=== PATIENT | female | born 1955 | race Native Hawaiian/Other Pacific Islander ===

== ENCOUNTER 2018-07-07 12:43 | Emergency (ER) | payer SELFPAY ==
[2018-07-07 14:06] LABS: Basophils % (Auto) 0.6 % (0.0-1.8); Eosinophils % (Auto) 0.5 % (0.0-4.3); Hematocrit 48.7 % (30.3-42.9); Hemoglobin 16.6 gm/dl (10.1-14.3); Lymphocytes # (Auto) 1.5 K/mm3 (1.2-5.4); Lymphocytes % (Auto) 28.4 % (13.4-35.0); Mean Corpuscular HGB Conc 34 % (30-34); Mean Corpuscular Hemoglobin 31 pg (28-32); Mean Corpuscular Volume 91 fl (79-97); Monocytes # (Auto) 0.3 K/mm3 (0.0-0.8); Monocytes % (Auto) 5.2 % (0.0-7.3); Platelet Count 264 K/mm3 (140-440); Red Blood Count 5.34 M/mm3 (3.65-5.03); Red Cell Distribution Width 12.7 % (13.2-15.2)
[2018-07-07 14:32] LABS: Calcium 10.6 mg/dL (8.4-10.2)
[2018-07-07] MEDS ORDERED: ZOFRAN IV ONE (18:09)
[2018-07-07] MEDS ORDERED: NACL 0.9% 1000 ML 1,000 ML IV ONE (18:09)
[2018-07-07] MEDS ORDERED: MORPHINE IV ONE (18:19)
--- NOTE | 2018-07-07 18:32 | Emergency Department Report ---
<SUZANNE CHÁVEZ - Last Filed: 07/07/18 18:29> ED General Adult HPI - General Chief complaint: Nausea/Vomiting/Diarrhea Stated complaint: NAUSEA/HEADACHE/HIGH BP Time Seen by Provider: 07/07/18 17:26 Source: patient, family Mode of arrival: Ambulatory Limitations: Language Barrier - History of Present Illness Initial comments: Patient presents to the emergency department with her daughter for a complaint of abdominal pain along with nausea and vomiting. The patient is [place]- speaking only so her daughter translates. Patient states the pain has been present for 2-3 weeks along with the nausea and vomiting. She denies anything making the pain worse and better. Denies chest pain, shortness of breath, headache. Was treated at clinic last week and given a prescription for Zofran and Pepcid without relief -: Gradual Location: abdomen Radiation: non-radiation Severity scale (0 -10): 3 Quality: dull Consistency: constant Improves with: none Worsens with: none Associated Symptoms: denies other symptoms - Related Data Previous Rx's Medication Instructions Recorded Last Taken Type Naproxen [Naprosyn] 500 mg PO BID PRN #20 tablet 07/07/18 Unknown Rx Allergies Allergy/AdvReac Type Severity Reaction Status Date / Time No Known Allergies Allergy Verified 07/07/18 21:26 ED Review of Systems ROS: Stated complaint: NAUSEA/HEADACHE/HIGH BP Other details as noted in HPI Comment: All other systems reviewed and negative Constitutional: denies: chills, fever Eyes: denies: eye pain, eye discharge, vision change ENT: denies: ear pain, throat pain Respiratory: denies: cough, shortness of breath, wheezing Cardiovascular: denies: chest pain, palpitations Endocrine: no symptoms reported Gastrointestinal: abdominal pain, nausea, vomiting. denies: diarrhea Genitourinary: denies: urgency, dysuria, discharge Musculoskeletal: denies: back pain, joint swelling, arthralgia Skin: denies: rash, lesions Neurological: denies: headache, weakness, paresthesias Psychiatric: denies: anxiety, depression Hematological/Lymphatic: denies: easy bleeding, easy bruising ED Past Medical Hx - Past Medical History Previous Medical History?: Yes Hx Hypertension: Yes - Surgical History Past Surgical History?: No - Social History Smoking Status: Never Smoker Substance Use Type: None - Medications Home Medications: Home Medications Medication Instructions Recorded Confirmed Last Taken Type Naproxen [Naprosyn] 500 mg PO BID PRN #20 tablet 07/07/18 Unknown Rx ED Physical Exam - General Limitations: Language Barrier, Other (daughter translated for patient) General appearance: alert, in no apparent distress - Head Head exam: Present: atraumatic, normocephalic - Eye Eye exam: Present: normal appearance - ENT ENT exam: Present: mucous membranes moist - Neck Neck exam: Present: normal inspection - Respiratory Respiratory exam: Present: normal lung sounds bilaterally. Absent: respiratory distress - Cardiovascular Cardiovascular Exam: Present: regular rate, normal rhythm. Absent: systolic murmur, diastolic murmur, rubs, gallop - GI/Abdominal GI/Abdominal exam: Present: soft, tenderness (diffusely tender to palpation), normal bowel sounds. Absent: distended - Extremities Exam Extremities exam: Present: normal inspection - Back Exam Back exam: Present: normal inspection - Neurological Exam Neurological exam: Present: alert, oriented X3 - Psychiatric Psychiatric exam: Present: normal affect, normal mood - Skin Skin exam: Present: warm, dry, intact, normal color. Absent: rash ED Course Vital Signs 07/07/18 13:17 Temperature 98.5 F Pulse Rate 83 Respiratory 16 Rate Blood Pressure 122/80 O2 Sat by Pulse 98 Oximetry ED Medical Decision Making - Lab Data Result diagrams: 07/07/18 13:46 07/07/18 13:46 Critical care attestation.: If time is entered above; I have spent that time in minutes in the direct care of this critically ill patient, excluding procedure time. ED Disposition Clinical Impression: Renal cyst, Hepatic cyst, Mild dehydration UTI (urinary tract infection) Qualifiers: Urinary tract infection type: acute cystitis Hematuria presence: without hematuria Qualified Code(s): N30.00 - Acute cystitis without hematuria Abdominal pain Qualifiers: Abdominal location: generalized Qualified Code(s): R10.84 - Generalized abdominal pain Disposition: DC-01 TO HOME OR SELFCARE Condition: Good Instructions: Dehydration (ED), Urinary Tract Infection in Women (ED) Prescriptions: Naproxen [Naprosyn] 500 mg PO BID PRN #20 tablet PRN Reason: pain Referrals: PRIMARY CARE,MD [Primary Care Provider] - 3-5 Days Forms: Work/School Release Form(ED) Print Language: YEMENI <CHAITANYA OSMAN - Last Filed: 07/07/18 22:05> ED Medical Decision Making - Lab Data Result diagrams: 07/07/18 13:46 07/07/18 13:46 Laboratory Tests 07/07/18 07/07/18 07/07/18 13:46 13:46 18:20 WBC 5.2 RBC 5.34 H Hgb 16.6 H Hct 48.7 H MCV 91 MCH 31 MCHC 34 RDW 12.7 L Plt Count 264 Lymph % (Auto) 28.4 [place] % (Auto) 5.2 Eos % (Auto) 0.5 Baso % (Auto) 0.6 Lymph # 1.5 [place] # 0.3 Eos # 0.0 Baso # 0.0 Seg Neutrophils % 65.3 Seg Neutrophils # 3.4 PT 12.9 INR 0.93 APTT 24.5 Sodium 135 L Potassium 4.7 Chloride 98.0 Carbon Dioxide 21 L Anion Gap 21 BUN 16 Creatinine 1.0 Estimated GFR 56 BUN/Creatinine Ratio 16 Glucose 105 H Calcium 10.6 H Total Bilirubin 0.90 AST 26 ALT 18 Alkaline Phosphatase 86 Total Protein 8.8 H Albumin 5.0 Albumin/Globulin Ratio 1.3 Lipase Urine Color Urine Turbidity Urine pH Ur Specific [place] Urine Protein Urine Glucose (UA) Urine Ketones Urine Blood Urine Nitrite Urine Bilirubin Urine Urobilinogen Ur Leukocyte Esterase Urine WBC (Auto) Urine RBC (Auto) U Epithel Cells (Auto) Urine Bacteria (Auto) Ur Renal Epithelial Cell Urine Mucus 07/07/18 07/07/18 18:20 18:39 WBC RBC Hgb Hct MCV MCH MCHC RDW Plt Count Lymph % (Auto) [place] % (Auto) Eos % (Auto) Baso % (Auto) Lymph # [place] # Eos # Baso # Seg Neutrophils % Seg Neutrophils # PT INR APTT Sodium Potassium Chloride Carbon Dioxide Anion Gap BUN Creatinine Estimated GFR BUN/Creatinine Ratio Glucose Calcium Total Bilirubin AST ALT Alkaline Phosphatase Total Protein Albumin Albumin/Globulin Ratio Lipase 59 Urine Color Yellow Urine Turbidity Slightly-cloudy Urine pH 5.0 Ur Specific [place] 1.023 Urine Protein 30 mg/dl Urine Glucose (UA) Neg Urine Ketones 20 Urine Blood Neg Urine Nitrite Neg Urine Bilirubin Neg Urine Urobilinogen < 2.0 Ur Leukocyte Esterase Lg Urine WBC (Auto) 57.0 H Urine RBC (Auto) 2.0 U Epithel Cells (Auto) 5.0 Urine Bacteria (Auto) 1+ Ur Renal Epithelial Cell 4 Urine Mucus 3+ - Radiology Data Radiology results: report reviewed, image reviewed No acute intra-abdominal process is noted , right kidney cyst multiple liver cysts, 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, bilateral spondylosis of L4 and 5 - Medical Decision Making Pain is improved with medications given in ED plan continue Zofran finished Bactrim continue omeprazole follow with PCP concerning UTI renal cyst liver cyst return immediately should symptoms worsen patient uses daughter as executive admin refuses executive admin service VERBALIZES understanding and agreement with discharge plan we'll put discharge plan the [place] and [place], pt is currently toleration even meal without n/v abd pain decreased 01/01 no n/v pt is a/o x 3 ambulatory wtih nad ED Disposition Is pt being admited?: No Does the pt Need Aspirin: No Time of Disposition: 22:05
[2018-07-07 18:46] LABS: INR 0.93 (0.87-1.13); Partial Thromboplastin Time 24.5 Sec. (24.2-36.6)
[2018-07-07 18:55] LABS: Bacteria,Urine 1+ /HPF (Negative); Bilirubin,Urine NEG (Negative); Blood,Urine NEG (Negative); Color,Urine Yellow (Yellow); Mucus,Urine 3+ /HPF; Renal Epithelial Cells,Urine 4 /LPF; Urobilinogen,Urine < 2.0 mg/dL (<2.0)
--- NOTE | 2018-07-07 20:43 | Cat Scan Report ---
FINAL REPORT EXAM: CT ABDOMEN PELVIS W CON HISTORY: abdominal pain TECHNIQUE: Standard enhanced CT of the abdomen and pelvis. Coronal and sagittal reconstruction was also performed. Contrast: 100 mL Omnipaque 300 given IV. PRIORS: None. FINDINGS: Within the abdomen, the liver demonstrates a subcentimeter rounded hypodensity in the inferior right lobe, likely a small cyst but too small to characterize. Two smaller hypodense foci in the superior aspect of the liver. The spleen, pancreas, gallbladder, adrenal glands, and kidneys are unremarkable. There are bilateral duplicated collecting systems extending down to the bladder bilaterally. There is a large low-density cyst off the anterior midpole right kidney measuring 3.9 x 4.7 cm (axial image 63, series 2). No evidence for retroperitoneal or pelvic lymphadenopathy is seen. The bowel loops have normal caliber. No soft tissue mass, fluid collection, inflammatory change, or free air is seen within the abdomen or pelvis. The appendix is normal. Within the pelvis, the bladder is unremarkable. The uterus is normal. No evidence for mass or lymphadenopathy is seen in the pelvis. Images through the upper abdomen include the lung bases which are expanded and clear. Bony structures show bilateral spondylolysis of L4. There is a grade 1 anterolisthesis of L4 on L5 measuring 6.8 mm. There is severe disc space narrowing L4-L5. IMPRESSION: 1. no acute intra-abdominal process noted. 2. Cyst in the right kidney and multiple cysts in the liver 3. 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 4. Bilateral spondylolysis at L4 with anterolisthesis of L4 on L5 and severe disc space narrowing at that level.
[2018-07-07] MEDS ORDERED: ROCEPHIN/NS 1 GM/50 ML 1 GM/50 ML BAG IV ONE (21:25)
[2018-07-07 22:35] VITALS: BP 123/72
== END 2018-07-07 22:33 | disposition home or self-care (01) ==
LOC: ED 12:43
DX: N30.00 Acute cystitis without hematuria (principal); E86.0 Dehydration; N28.1 Cyst of kidney, acquired; I10 Essential (primary) hypertension
CPT/HCPCS: 36415; 74177; 80053; 81001; 83690; 85025; 85610; 85730; 96361; 96365; 96375; 99284; J0696; J2270; J2405; J7030; Q9967

== ENCOUNTER 2018-07-08 19:51 | Emergency (ER) | payer SELFPAY ==
[2018-07-08] MEDS ORDERED: NACL 0.9% 1000 ML 1,000 ML IV ONE (21:00)
[2018-07-08 21:15] LABS: Basophils % (Auto) 0.6 % (0.0-1.8); Eosinophils % (Auto) 0.6 % (0.0-4.3); Hematocrit 43.2 % (30.3-42.9); Hemoglobin 15.4 gm/dl (10.1-14.3); Lymphocytes # (Auto) 1.1 K/mm3 (1.2-5.4); Lymphocytes % (Auto) 22.1 % (13.4-35.0); Mean Corpuscular HGB Conc 36 % (30-34); Mean Corpuscular Hemoglobin 32 pg (28-32); Mean Corpuscular Volume 90 fl (79-97); Monocytes # (Auto) 0.3 K/mm3 (0.0-0.8); Monocytes % (Auto) 6.7 % (0.0-7.3); Platelet Count 245 K/mm3 (140-440); Red Cell Distribution Width 12.4 % (13.2-15.2)
[2018-07-08 21:32] LABS: Albumin 4.4 g/dL (3.9-5); Calcium 10.3 mg/dL (8.4-10.2)
[2018-07-09] MEDS ORDERED: NACL 0.9% 500 ML 500 ML IV ONE (04:23)
[2018-07-09] MEDS ORDERED: TYLENOL PO ONE (04:23)
[2018-07-09] MEDS ORDERED: REGLAN IV ONE (04:23)
--- NOTE | 2018-07-09 04:26 | Emergency Department Report ---
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 She typically goes to [facility] for her medical care. Patient was seen at [facility] as an outpatient last week, and was presumptively diagnosed with a urinary tract infection and prescribed 10 days of Bactrim. She was also prescribed as needed Zofran and omeprazole. She presented to the ER recently for abdominal cramping and nausea and vomiting, had laboratory studies that were unremarkable and a CT scan of the abdomen and pelvis that was basically negative for significant surgical disease. The patient was documented to have improved with her symptoms. She now presents to the ER with family for nausea and generalized weakness. She describes decreased appetite. She indicates that she has no urinary symptoms. In the emergency room, the patient was given fluids, acetaminophen, and Reglan which improved her symptoms. She complained of mild frontal headache, which was not sudden or thunderclap in nature and not maximum intensity. She reports that she felt this way because she wasn't eating. -: Gradual Location: head Consistency: now resolved Improves with: medication Associated Symptoms: headaches, loss of appetite, malaise, nausea/vomiting, weakness. denies: confusion, chest pain, cough, diaphoresis, fever/chills, rash , seizure, shortness of breath, syncope - Related Data Previous Rx's Medication Instructions Recorded Last Taken Type Acetaminophen [Tylenol Arthritis] 650 mg PO Q6HR PRN #30 tablet.er 07/09/18 Unknown Rx Famotidine [Pepcid] 20 mg PO BID #30 tablet 07/09/18 Unknown Rx Ondansetron [Zofran Odt] 4 mg PO Q8HR PRN #20 tab.rapdis 07/09/18 Unknown Rx Allergies Allergy/AdvReac Type Severity Reaction Status Date / Time No Known Allergies Allergy Verified 07/07/18 21:26 ED Review of Systems ROS: Stated complaint: ABD PAIN/NAUSEA/HEADACHE/HBP Other details as noted in HPI Constitutional: denies: fever Eyes: denies: eye discharge ENT: denies: epistaxis Respiratory: denies: cough Cardiovascular: denies: chest pain Gastrointestinal: nausea Genitourinary: denies: dysuria Neurological: weakness ED Past Medical Hx - Past Medical History Hx Hypertension: Yes - Surgical History Past Surgical History?: No - Social History Smoking Status: Never Smoker Substance Use Type: None - Medications Home Medications: Home Medications Medication Instructions Recorded Confirmed Last Taken Type Acetaminophen [Tylenol Arthritis] 650 mg PO Q6HR PRN #30 tablet.er 07/09/18 Unknown Rx Famotidine [Pepcid] 20 mg PO BID #30 tablet 07/09/18 Unknown Rx Ondansetron [Zofran Odt] 4 mg PO Q8HR PRN #20 tab.rapdis 07/09/18 Unknown Rx ED Physical Exam - General Limitations: Language Barrier General appearance: alert, in no apparent distress - Head Head exam: Present: atraumatic, normocephalic - Eye Eye exam: Present: normal appearance, PERRL, EOMI, other (visual acuity intact to finger counting,, color perception.). Absent: nystagmus - ENT ENT exam: Present: normal exam, normal orophraynx, mucous membranes moist, TM's normal bilaterally, normal external ear exam, other (there is no mastoid tenderness) - Neck Neck exam: Present: normal inspection, full ROM. Absent: tenderness, meningismus - Respiratory Respiratory exam: Present: normal lung sounds bilaterally. Absent: respiratory distress - Cardiovascular Cardiovascular Exam: Present: regular rate, normal rhythm, normal heart sounds. Absent: bradycardia, tachycardia, irregular rhythm, systolic murmur, diastolic murmur, rubs, gallop - GI/Abdominal GI/Abdominal exam: Present: soft, normal bowel sounds. Absent: distended, tenderness, guarding, rebound, rigid, pulsatile mass - Extremities Exam Extremities exam: Present: normal inspection, full ROM, normal capillary refill , other (Extraocular movements intact. Tongue midline. No facial droop. Facial sensation intact to light touch in the V1, V2, V3 distribution bilaterally. 5 and 5 strength in 4 extremities.. Sensation is intact to light touch in 4 extremities.). Absent: tenderness, pedal edema, joint swelling, calf tenderness - Back Exam Back exam: Present: normal inspection, full ROM. Absent: tenderness, CVA tenderness (R), paraspinal tenderness, vertebral tenderness - Neurological Exam Neurological exam: Present: alert, oriented X3, CN II-XII intact, normal gait, other (2+ pulses noted in the bilateral upper, lower extremities. Compartments soft. No long bony tenderness. The pelvis is stable.). Absent: motor sensory deficit - Psychiatric Psychiatric exam: Present: normal affect, normal mood - Skin Skin exam: Present: warm, dry, intact, normal color. Absent: rash ED Course Vital Signs 07/08/18 07/09/18 07/09/18 20:49 04:58 05:05 Temperature 98.6 F 98.1 F Pulse Rate 83 80 Respiratory 16 16 16 Rate Blood Pressure 127/80 Blood Pressure 116/58 [Right] O2 Sat by Pulse 98 99 Oximetry 07/09/18 06:37 Temperature 98.5 F Pulse Rate 70 Respiratory 16 Rate Blood Pressure Blood Pressure 97/62 [Right] O2 Sat by Pulse 99 Oximetry ED Medical Decision Making - Lab Data Result diagrams: 07/08/18 21:04 07/08/18 21:04 Vital Signs 07/08/18 07/09/18 07/09/18 20:49 04:58 05:05 Temperature 98.6 F 98.1 F Pulse Rate 83 80 Respiratory 16 16 16 Rate Blood Pressure 127/80 Blood Pressure 116/58 [Right] O2 Sat by Pulse 98 99 Oximetry Lab Results 07/08/18 07/08/18 07/09/18 Range/Units 21:04 21:04 04:15 WBC 5.0 (4.5-11.0) K/mm3 RBC 4.80 (3.65-5.03) M/mm3 Hgb 15.4 H (10.1-14.3) gm/dl Hct 43.2 H (30.3-42.9) % MCV 90 (79-97) fl MCH 32 (28-32) pg MCHC 36 H (30-34) % RDW 12.4 L (13.2-15.2) % Plt Count 245 (140-440) K/mm3 Lymph % (Auto) 22.1 (13.4-35.0) % [place] % (Auto) 6.7 (0.0-7.3) % Eos % (Auto) 0.6 (0.0-4.3) % Baso % (Auto) 0.6 (0.0-1.8) % Lymph # 1.1 L (1.2-5.4) K/mm3 [place] # 0.3 (0.0-0.8) K/mm3 Eos # 0.0 (0.0-0.4) K/mm3 Baso # 0.0 (0.0-0.1) K/mm3 Seg Neutrophils % 70.0 (40.0-70.0) % Seg Neutrophils # 3.5 (1.8-7.7) K/mm3 Sodium 133 L (137-145) mmol/L Potassium 4.4 (3.6-5.0) mmol/L Chloride 96.9 L (98-107) mmol/L Carbon Dioxide 20 L (22-30) mmol/L Anion Gap 21 mmol/L BUN 12 (7-17) mg/dL Creatinine 1.0 (0.7-1.2) mg/dL Estimated GFR 56 ml/min BUN/Creatinine Ratio 12 % Glucose 111 H (65-100) mg/dL Calcium 10.3 H (8.4-10.2) mg/dL Total Bilirubin 0.70 (0.1-1.2) mg/dL AST 25 (5-40) units/L ALT 15 (7-56) units/L Alkaline Phosphatase 79 (35-129) units/L Total Protein 8.0 (6.3-8.2) g/dL Albumin 4.4 (3.9-5) g/dL Albumin/Globulin Ratio 1.2 % Urine Color Yellow (Yellow) Urine Turbidity Slightly-cloudy (Clear) Urine pH 7.0 (5.0-7.0) Ur Specific [place] 1.026 (1.003-1.030) Urine Protein 30 mg/dl (Negative) mg/dL Urine Glucose (UA) Neg (Negative) mg/dL Urine Ketones 20 (Negative) mg/dL Urine Blood Neg (Negative) Urine Nitrite Neg (Negative) Urine Bilirubin Neg (Negative) Urine Urobilinogen 4.0 (<2.0) mg/dL Ur Leukocyte Esterase Neg (Negative) Urine WBC (Auto) 2.0 (0.0-6.0) /HPF Urine RBC (Auto) 3.0 (0.0-6.0) /HPF U Epithel Cells (Auto) 2.0 (0-13.0) /HPF Hyaline Casts 1 /LPF Urine Mucus 2+ /HPF - EKG Data -: EKG Interpreted by Me EKG shows normal: sinus rhythm, axis, intervals, QRS complexes, ST-T waves Rate: normal - EKG Data When compared to previous EKG there are: previous EKG unavailable Interpretation: normal EKG - Radiology Data Radiology results: report reviewed, image reviewed - Medical Decision Making Differential diagnosis, including but not limited to: Medication side effect, dehydration Assessment and plan: 63-year-old female with numerous nonspecific symptoms, most likely secondary to medication side effect. She is afebrile with reassuring vital signs, has a soft belly walks with a steady gait, and has appropriate strength in the upper extremities, with no obvious facial droop. She is given Reglan, fluids, acetaminophen and reports feeling improved. She was observed in the ER for a few hours without clinical decompensation. She can stop her Bactrim, stop NSAIDs, and take supportive care as needed. Critical care attestation.: If time is entered above; I have spent that time in minutes in the direct care of this critically ill patient, excluding procedure time. ED Disposition Clinical Impression: History of nausea Disposition: DC-01 TO HOME OR SELFCARE Is pt being admited?: No Does the pt Need Aspirin: No Condition: Stable Instructions: Abdominal Pain (ED) Additional Instructions: Discontinue consumption of Motrin, ibuprofen, Naprosyn, Aleve. These medications may cause abdominal cramping, nausea and vomiting. Patient may also stop the antibiotic, Bactrim. Cultures was sent today, and results will be available in the next 3-5 days. Have a primary care doctor contact the medical records department to obtain culture results. Take the prescribed pain medications, nausea medications as needed/directed, and make sure to advance diet gently. Follow-up with her primary care doctor within the next 10 days. Return to the ER right away with new pain, worsened pain, migration of pain, projectile vomiting, change in mental status, confusion, inability to tolerate liquid feeds. Interrumpa el consumo de Motrin, ibuprofeno, Naprosyn, Aleve. Estos medicamentos pueden causar clicos abdominales, nuseas y vmitos. El paciente tambin puede suspender el antibitico, Bactrim. Cultures fue enviado hoy, y los resultados estarn disponibles en los prximos 3-5 parra. Qiana que un mdico de atencin primaria se comunique con el departamento de registros mdicos para obtener resultados de cultivo. [place] los analgsicos recetados, los medicamentos para las nuseas segn sea necesario / dirigido, y asegrese de adelantar la dieta suavemente. Qiana un seguimiento con ellison mdico de atencin primaria dentro de los prximos 10 parra. Regrese a la margaux de urgencias de inmediato con un nuevo dolor, dolor empeorado, migracin de dolor, vmitos con proyectiles, cambios en el estado mental, confusin, incapacidad para tolerar alimentaciones lquidas. Prescriptions: Acetaminophen [Tylenol Arthritis] 650 mg PO Q6HR PRN #30 tablet.er PRN Reason: Pain Famotidine [Pepcid] 20 mg PO BID #30 tablet Ondansetron [Zofran Odt] 4 mg PO Q8HR PRN #20 tab.rapdis PRN Reason: Nausea Referrals: PRIMARY CARE,MD [Primary Care Provider] - 3-5 Days [facility] [Provider Group] - 3-5 Days
[2018-07-09 05:06] LABS: Bilirubin,Urine NEG (Negative); Blood,Urine NEG (Negative); Color,Urine Yellow (Yellow); Hyaline Casts,Urine 1 /LPF; Mucus,Urine 2+ /HPF
[2018-07-09 06:39] VITALS: BP 97/62
== END 2018-07-09 06:39 | disposition home or self-care (01) ==
LOC: ED 19:51
DX: R11.2 Nausea with vomiting, unspecified (principal); I10 Essential (primary) hypertension
CPT/HCPCS: 36415; 80053; 81001; 85025; 93005; 93010; 96374; 99284; J2765; J7040